=== PATIENT | male | born 1965 | race Caucasian/White ===

== ENCOUNTER 2025-02-10 09:50 | Day surgery (SDC) | payer OTHER, SELFPAY ==
[2025-02-06 09:28] VITALS: BMI 28.3
[2025-02-06 11:39] LABS: Basophils # (Auto) 0.1 Thou/mm3 (0.0-0.2); Basophils % (Auto) 3 % (0-2.5); Eosinophils # (Auto) 0.2 Thou/mm3 (0.0-0.5); Eosinophils % (Auto) 4 % (0-10); Hematocrit 46.9 % (41.0-53.0); Hemoglobin 16.2 g/dL (13.5-16.0); Immature Granulocytes Auto 0.01 Thou/mm3 (0.00-0.00); Lymphocytes # (Auto) 1.6 Thou/mm3 (1.0-4.8); Lymphocytes % (Auto) 34 % (10-50); Mean Corpuscular HGB Conc 34.5 g/dl (31.0-37.0); Mean Corpuscular Hemoglobin 29.0 pg (25.0-35.0); Mean Corpuscular Volume 84 fL (80-100); Monocytes # (Auto) 0.5 Thou/mm3 (0.0-0.8); Monocytes % (Auto) 10 % (0-12); Neutrophils # (Auto) 2.2 Thou/mm3 (1.8-7.7); Neutrophils % (Auto) 49 % (37-80); Nucleated Red Blood Cell # 0.00 Thou/mm3 (0.00-0.00); Nucleated Red Blood Cell % 0 /100 WBC (0); Platelet Count 216 Thou/mm3 (140-440); RDW Standard Deviation 41.7 fL (35.1-43.9); Red Blood Count 5.58 Miln/mm3 (4.50-5.90); White Blood Count 4.6 Thou/mm3 (3.8-10.6)
[2025-02-06 11:52] LABS: Alanine Aminotransferase 53 U/L (10-49); Albumin, Serum 4.5 gm/dL (3.5-5.0); Albumin/Globulin Ratio 1.9 (1.2-2.2); Alkaline Phosphatase 72 U/L (46-116); Anion Gap 9 (7-16); Aspartate Amino Transferase 30 U/L (0-34); BUN/Creatinine Ratio 9 Ratio (12-20); Bilirubin,Total 0.8 mg/dL (0.3-1.2); Blood Urea Nitrogen 11 mg/dL (9-23); Calcium 9.4 mg/dL (8.3-10.6); Calcium (Corrected) 9.4 mg/dL (8.5-10.1); Carbon Dioxide 30.5 mMol/L (20.0-31.0); Chloride 104 mMol/L (98-107); Creatinine (Component) 1.2 mg/dL (0.6-1.3); Estimated Creatinine Clearance 70.2 mL/min (>60); Globulin 2.4 gm/dL (2.3-3.5); Glucose 110 mg/dL (74-106); INR 0.9 (0.9-1.3); Osmolality,Calculated 285 (275-295); Partial Thromboplastin Time 25.4 Seconds (22.0-36.0); Potassium 4.1 mMol/L (3.4-5.1); Prothrombin Time 10.1 Seconds (9.0-12.2); Sodium 143 mMol/L (136-145); Total Protein 6.9 gm/dL (5.7-8.2); eGFR > 60 See Note
--- NOTE | 2025-02-09 13:53 | SUR.PREOP ---
Pt notified to come in at 1000 tomorrow for surgey.
[2025-02-10] VITALS (11 sets, daily range): BP systolic 128–146; BP diastolic 85–96; PULSE 70–93; RESP 12–16; TEMP 36.3–36.4; O2SAT 95–99; BMI 27.8
--- NOTE | 2025-02-10 14:30 | SUR.PHASEI ---
1430 Patient arrived to recovery resting comfortably in [facility], on oxygen 10L via oxy mask, sleeping and able to arouse with verbal prompting; then drifts back to sleep, breathing unlabored, vital signs stable, denies pain and nausea, dressing intact to lower abdomen; sutures, adaptic, gauze, medipore tape, no bleeding noted, report received from Marie ONEILL and Dr. Velez
--- NOTE | 2025-02-10 14:45 | SUR.PHASEI ---
1445 Dr. Hager at bedside and ordered for patient to void prior to discharge
[2025-02-10] MEDS: ONDANSETRON INJ 2 MG/ML INJ 2 ML 4 MG IVP (15:27)
--- NOTE | 2025-02-10 15:47 | SUR.PHASEII ---
[id number] Telephone order read-back received from Dr. Velez; Peter oral tab x1 for pain, will enter order in EMR and administer per MD order
[2025-02-10] MEDS: fentaNYL CIT INJ 50 mCg/ML AMP 2ML 25 MCG IVP (15:53)
[2025-02-10] MEDS: HYDROcodone/APAP 5/325 TABLET 1 TAB PO (16:03)
--- NOTE | 2025-02-10 16:25 | SUR.PHASEII ---
1625 Patient meets discharge criteria from recovery, awake and alert, breathing unlabored, vital signs stable, per patient his pain is improving; given pain pill prior to discharge, dressing intact; no bleeding noted, eating ice chips; tolerating well, patient voided in restroom per MD order, assisted with dressing into his clothing by his and this instructional writer, discharge instructions given to patient and patients , signed discharge insructions. Patient given all his belongings prior to discharge, transported via wheelchair and left in a private vehicle.
--- NOTE | 2025-02-10 16:57 | PD.SUROPNT ---
Date of Procedure 02/10/25 Pre Op Diagnosis Bilateral inguinal hernias, symptomatic Post Op Diagnosis Same, direct on both sides Procedure Repair of the inguinal hernia on both the groins. Findings Patient is found to have weakness in the hasselbach's angle and bulging of the transversalis fascia on both sides requiring reconstruction of the floor. Procedure Description After the patient was given general anesthesia patient was placed in supine position. Lower abdomen was prepped with ChloraPrep solution and draped in a sterile manner. Then the [left] inguinal incision was made for about [7 cm] in length. External oblique was incised and the cord structures were encircled and(. The patient was found to have no indirect sac and it was obvious that the patient had a large direct inguinal hernia because of the bulging medial to the cord structures in the transversalis fascia over hasselbach triangle The cord structures were encircled around a Sav drain. The floor of the inguinal canal was reconstructed as follows: I made an incision in the transversalis fascia which was thin and attenuated. The preperitoneal fat was entered and the used 3 4 x 4's to create a space to place Ventralex ST mesh measuring [2.5 inches] in diameter. After the mesh was placed in the superior strap was attached to the internal oblique with a 2-0 Prolene. The inferior strap was attached to the Albin's ligament using 2-0 Prolene. The sponge count was made to confirm that all of them were removed before the mesh was placed in place. Then I approximated the transversalis fascia over the mesh using a 2-0 Prolene. At the end of the floor of the inguinal canal appeared to be strong and without any weakness. Then I placed an onlay mesh over the floor and attached it medially to the pubic tubercle with a 2-0 Prolene suture. Laterally it was encircling the cord structures after making a hole in the mesh. The tails of the mesh was tucked underneath the external oblique. After checking for any bleeding point the external oblique was closed with a running 2-0 Vicryl. Subcutaneous tissues was closed with 3``0 plain and I injected half percent Marcaine with epinephrine for analgesia. The subcuticular approximation was performed with 4-0 Monocryl. In the right inguinal hernia was approached similarly and is found to have exactly the same direct inguinal hernia. This is also repaired the same way using 2.[address] mesh. But no onlay patch was used on this side because the hernia was relatively small compared to the right side. At the end dressing was applied with Adaptic and 4 x 4 gauze and patient tolerated the procedure well Anesthesia [employer] Implants comments: Ventralex ST mesh on the left side and 2 x 4 Marlex mesh onlay patch Ventralex ST mesh 2.5 inches in diameter on the right side with no onlay patch Pathology / specimen None Estimated Blood Loss 30 Surgeon Manan Hager MD Surgical Staff Operation Date: 02/10/25 12:00 Case Staff Anesthesiologist: Miguelangel Velez RN First Assistant: Morenita Gan RN First Assistant: Rissa Rock
== END 2025-02-10 16:25 | disposition home or self-care (01) ==
PROVIDERS: PCP Family Medicine; Referring Provider Surgery; Visit Provider Surgery
PROC: (CPT 49505; principal; 2025-02-10 11:45)
DX: K40.20 Bilateral inguinal hernia, without obstruction or gangrene, not specified as recurrent (principal)
CPT/HCPCS: 49505; 36415; 80053; 85025; 85610; 85730; A4649; C1781; J0131; J1100; J1885; J2250; J2371; J2405; J2704; J3010; J3490; A9270